=== PATIENT | male | born 1940 | race Caucasian/White ===

== ENCOUNTER 2018-03-03 08:45 | Day surgery (SDC) | payer MEDICARE, OTHER ==
[~2018-03-03] VITALS: Ht 177.8 cm; Wt 91.2 kg
[~2018-03-03 08:45] MED LIST: ASPI325EC PO; HYDR1TAB94 PO; LEVO-T150 MCG PO; LOSARTAN POTAS100 MG PO; PRED1 PO
== END 2018-03-03 12:58 | disposition home or self-care (01) ==
LOC: ORSCSDS 08:45
PROVIDERS: Internal Medicine Gastroenterology
PROC: 0DBH8ZX Excision of Cecum, Via Natural or Artificial Opening Endoscopic, Diagnostic (ICD-10-PCS; principal; 2018-03-03 10:15)
PROC: 0DBL8ZX Excision of Transverse Colon, Via Natural or Artificial Opening Endoscopic, Diagnostic (ICD-10-PCS; principal; 2018-03-03 10:15)
DX: Z12.11 Encounter for screening for malignant neoplasm of colon (principal); D12.0 Benign neoplasm of cecum; D12.3 Benign neoplasm of transverse colon; K64.8 Other hemorrhoids; K57.30 Diverticulosis of large intestine without perforation or abscess without bleeding; Z86.010 Personal history of colon polyps; I10 Essential (primary) hypertension; Z79.899 Other long term (current) drug therapy
CPT/HCPCS: 88305; J7120

== ENCOUNTER 2019-12-15 10:19 | Day surgery (SDC) | payer MEDICARE, OTHER ==
[~2019-12-15] VITALS: Ht 177.8 cm; Wt 97.9 kg
[2019-12-15] MEDS ORDERED: Aspir 8181 MG PO (10:46)
[2019-12-15] MEDS ORDERED: DULO60 PO (10:47)
== END 2019-12-15 11:30 | disposition home or self-care (01) ==
LOC: ORSCSDS 10:19
PROVIDERS: Anesthesiology
PROC: 3E0R33Z Introduction of Anti-inflammatory into Spinal Canal, Percutaneous Approach (ICD-10-PCS; principal; 2019-12-15 11:30)
DX: M54.16 Radiculopathy, lumbar region (principal); I10 Essential (primary) hypertension; E03.9 Hypothyroidism, unspecified; M48.061 Spinal stenosis, lumbar region without neurogenic claudication; F32.9 Major depressive disorder, single episode, unspecified; E66.9 Obesity, unspecified; Z68.31 Body mass index [BMI] 31.0-31.9, adult; Z79.82 Long term (current) use of aspirin; Z79.899 Other long term (current) drug therapy
CPT/HCPCS: J1040

== ENCOUNTER 2020-05-11 11:25 | Day surgery (SDC) | payer MEDICARE, OTHER ==
[~2020-05-11] VITALS: Ht 175.3 cm; Wt 98.1 kg
[~2020-05-11 11:25] MED LIST changes: +Aspir 8181 MG PO; +DULO60 PO
[2020-05-11] MEDS ORDERED: HYDR1TAB94 PO (11:59)
[2020-05-11] MEDS ORDERED: NAPR500 (11:59)
== END 2020-05-11 12:39 | disposition home or self-care (01) ==
LOC: ORSCSDS 11:25
PROVIDERS: Anesthesiology
PROC: 3E0R33Z Introduction of Anti-inflammatory into Spinal Canal, Percutaneous Approach (ICD-10-PCS; principal; 2020-05-11 12:30)
DX: M51.16 Intervertebral disc disorders with radiculopathy, lumbar region (principal); F32.9 Major depressive disorder, single episode, unspecified; I10 Essential (primary) hypertension; E03.9 Hypothyroidism, unspecified; Z79.82 Long term (current) use of aspirin; Z79.899 Other long term (current) drug therapy
CPT/HCPCS: J1040

== ENCOUNTER 2020-09-27 10:21 | Day surgery (SDC) | payer MEDICARE, OTHER ==
[~2020-09-27] VITALS: Ht 177.8 cm; Wt 98.5 kg
[~2020-09-27 10:21] MED LIST changes: +NAPR500
== END 2020-09-27 11:55 | disposition home or self-care (01) ==
LOC: ORSCSDS 10:21
PROVIDERS: Anesthesiology
PROC: 3E0R33Z Introduction of Anti-inflammatory into Spinal Canal, Percutaneous Approach (ICD-10-PCS; principal; 2020-09-27 11:30)
DX: M51.16 Intervertebral disc disorders with radiculopathy, lumbar region (principal); F32.9 Major depressive disorder, single episode, unspecified; I10 Essential (primary) hypertension; E03.9 Hypothyroidism, unspecified; E66.01 Morbid (severe) obesity due to excess calories; Z68.31 Body mass index [BMI] 31.0-31.9, adult; Z79.82 Long term (current) use of aspirin; Z79.899 Other long term (current) drug therapy
CPT/HCPCS: J1040

== ENCOUNTER 2021-07-17 08:23 | Day surgery (SDC) | payer MEDICARE, OTHER ==
[~2021-07-17] VITALS: Ht 177.8 cm; Wt 89.7 kg
[~2021-07-17 08:23] MED LIST changes: +ELIQUIS5 M2 PO
--- NOTE | 2021-07-17 11:13 | NUR ---
07/17/21 Guy3 Omaira Colon PROPOFOL ADMINISTERED BY ENA WHITMORE RN.
== END 2021-07-17 10:35 | disposition home or self-care (01) ==
LOC: ORSCSDS 08:23
PROVIDERS: Internal Medicine Gastroenterology
PROC: 0DBL8ZX Excision of Transverse Colon, Via Natural or Artificial Opening Endoscopic, Diagnostic (ICD-10-PCS; principal; 2021-07-17 09:45)
DX: Z12.11 Encounter for screening for malignant neoplasm of colon (principal); D12.3 Benign neoplasm of transverse colon; K57.30 Diverticulosis of large intestine without perforation or abscess without bleeding; K64.8 Other hemorrhoids; Z86.010 Personal history of colon polyps; I10 Essential (primary) hypertension; I48.91 Unspecified atrial fibrillation; Z79.82 Long term (current) use of aspirin; Z79.899 Other long term (current) drug therapy; Z79.01 Long term (current) use of anticoagulants
CPT/HCPCS: 88305; J2704; J7120

== ENCOUNTER 2022-07-16 06:56 | Day surgery (SDC) | payer MEDICARE, OTHER ==
[~2022-07-16] VITALS: Ht 175.3 cm; Wt 99.0 kg
--- NOTE | 2022-07-16 10:31 | NUR ---
pt ambulated to restroom w/o assistance.
--- NOTE | 2022-07-16 10:34 | NUR ---
2cc removed from tr band. no bleeding noted. site soft and non-tender per pt.
--- NOTE | 2022-07-16 10:49 | NUR ---
2cc removed from tr band. no bleeding noted. site soft and non-tender.
--- NOTE | 2022-07-16 11:19 | NUR ---
tr band fully deflated. no bleeding noted. site soft and non-tender.
--- NOTE | 2022-07-16 12:22 | NUR ---
PT GIVEN DC INSTRUCTIONS AND VERBALIZED UNDERSTANDING. TR BAND REMOVED. CLOTH DOT PLACED. ARM BOARD PLACED. SLING PLACED. PT TAKEN TO LBY VIA WC WHERE FAMILY IS WAITING. PT TAKEN TO VEHICLE VIA WC.
== END 2022-07-16 12:15 | disposition home or self-care (01) ==
LOC: MHTC 06:56
DX: I48.0 Paroxysmal atrial fibrillation (principal); I47.1 Supraventricular tachycardia; R00.1 Bradycardia, unspecified; I25.10 Atherosclerotic heart disease of native coronary artery without angina pectoris; I25.82 Chronic total occlusion of coronary artery; I11.9 Hypertensive heart disease without heart failure; Z79.01 Long term (current) use of anticoagulants; Z86.73 Personal history of transient ischemic attack (TIA), and cerebral infarction without residual deficits
CPT/HCPCS: 76937; 93454; 99152; 99153; A9270; C1769; C1887; C1894; J1644; J2250; J3010; J7030; J7050; Q9967

== ENCOUNTER → 2023-05-03 | Outpatient (CLI) | payer MEDICARE, OTHER | END | disposition home or self-care (01) | LOC: LAB 08:35 → LAB SHORT 08:35 | DX: R31.9 Hematuria, unspecified (principal) | CPT/HCPCS: 87086 ==

== ENCOUNTER 2023-06-19 05:50 | Day surgery (SDC) | payer MEDICARE, OTHER ==
[~2023-06-19] VITALS: Ht 177.8 cm; Wt 88.0 kg
[2023-06-19] MEDS ORDERED: NITR.4SL SL (06:19)
[2023-06-19] MEDS ORDERED: ROSU10TA PO (06:20)
[2023-06-19] MEDS ORDERED: MULTI-VITAMIN1 EAC2 PO (06:20)
[2023-06-19] MEDS ORDERED: Flomax0.4 MG PO (06:21)
[2023-06-19 06:33] VITALS: BP 136/69
[2023-06-19 06:45] VITALS: BP 145/87
[2023-06-19 07:00] VITALS: BP 144/71
[2023-06-19 07:15] VITALS: BP 162/102
[2023-06-19 07:30] VITALS: BP 124/71
[2023-06-19 07:42] VITALS: BP 130/89
--- NOTE | 2023-06-19 08:20 | NUR ---
PT AND VERBALIZED UNDERSTANDING OF WRITTEN AND VERBAL D/C INST. IV REMOVED. PT TAKEN OUT OF THE HRT CENTER VIA W/C.
== END 2023-06-19 22:52 | disposition home or self-care (01) ==
LOC: MHTC 05:50
DX: I48.0 Paroxysmal atrial fibrillation (principal); I25.10 Atherosclerotic heart disease of native coronary artery without angina pectoris; I10 Essential (primary) hypertension
CPT/HCPCS: 93312; 93325; 99152; A9270; J2250; J2310; J3010; J7030

== ENCOUNTER → 2023-09-02 | Outpatient (CLI) | payer MEDICARE, OTHER ==
[~2023-09-02] MED LIST changes: +Flomax0.4 MG PO; +MULTI-VITAMIN1 EAC2 PO; +NITR.4SL SL; +ROSU10TA PO
[2023-09-02 19:44] LABS: BASOPHILS ABSOLUTE AUTO 0.06 K/mm3 (0.00-0.23); BASOPHILS PERCENT AUTO 1 % (0-2); EOSINOPHILS ABSOLUTE AUTO 0.08 K/mm3 (0.00-0.68); EOSINOPHILS PERCENT AUTO 1 % (0-6); Hematocrit 33.5 % (37.0-53.0); Hemoglobin 10.8 g/dL (13.5-17.5); IMMATURE GRAN ABSOLUTE AUTO 0.08 K/mm3 (0.00-0.10); IMMATURE GRAN PERCENT AUTO 1 % (0-1); LYMPHOCYTES ABSOLUTE AUTO 1.03 K/mm3 (0.84-5.20); LYMPHOCYTES PERCENT AUTO 18 % (21-46); MONOCYTES ABSOLUTE AUTO 0.78 K/mm3 (0.16-1.47); MONOCYTES PERCENT AUTO 14 % (4-13); Mean Corpuscular HGB 31.3 pg (26.0-34.0); Mean Corpuscular HGB Conc 32.2 g/dL (31.5-36.5); Mean Corpuscular Volume 97 fL (80-100); Mean Platelet Volume 11.1 fL (9.1-12.4); NEUTROPHILS ABSOLUTE AUTO 3.74 K/mm3 (1.96-9.15); NEUTROPHILS PERCENT AUTO 65 % (41-73); Platelet Count 193 K/mm3 (150-400); RDW Coefficient Variation 14.9 % (11.7-14.2); RDW Standard Deviation 53.3 fL (35.1-46.3); Red Blood Cell Count 3.45 M/mm3 (4.30-5.90); White Blood Cell Count 5.77 K/mm3 (4.00-11.30)
== END ==
LOC: LAB SHORT 18:16 → LAB 18:16
PROVIDERS: Internal Medicine Hematology & Oncology
DX: D64.9 Anemia, unspecified (principal); R94.5 Abnormal results of liver function studies
CPT/HCPCS: 85025

== ENCOUNTER 2024-10-05 08:57 | Day surgery (SDC) | payer MEDICARE, OTHER ==
[~2024-10-05] VITALS: Ht 175.3 cm; Wt 92.9 kg
[~2024-10-05 08:57] MED LIST changes: +Balanced Salt Epinephrine Irrigation Solution 500 mL IR SCH; +Lidocaine HCl/Pf 1% 5 ML VIAL XX SCH; +Moxifloxacin HCL 0.5 MG/0.1 ML 0.4MLSYR RIGHTEYE SCH; +PHENYLEPHRINE\\TROPICAMIDE\\TETRACAINE OPHTHALMIC DILATING SOLN RIGHTEYE PRN; +Povidone-Iodine 450 DROP/30 ML Solution ONE; +Povidone-Iodine 450 DROP/30 ML Solution RIGHTEYE SCH; +Tetracaine HCl/Pf 0.5% Opth Soln 4 ml ONE
[2024-10-05] MEDS ORDERED: ROSUVASTATIN CA10 MG PO (09:16)
--- NOTE | 2024-10-05 09:22 | NUR ---
10/05/24 0922 Bere Aponte AT 0915 PLEET 0916
[2024-10-05] MEDS ORDERED: Midazolam HCl 1MG / ML 2ML Vial ONE (09:53)
--- NOTE | 2024-10-05 11:18 | NUR ---
10/05/24 1118 Lesvia Alcaraz PT SUSPECTED OF BEING IN A-FIB PER (SDU) MONITORS (ASYMPTOMATIC). PT AND S/O UNAWARE OF A RECENT A-FIB DX. STS IS NOT ON ANY BLOOD THINNER FOR AFIB. NOTIFIED DR. MILLER, ANESTHESIOLOGIST. REQUESTED 12 LEAD EKG. PT HX OF CARDIAC BYPASS IN 2021. PT AND S/O ST HAVE NOT SEEN A EXCELSIOR MACHINE TENDER SINCE THEN. PT DOES HAVE SOME SOB, BUT STS HAS HAD THAT FOR MANY YEARS. THIS RN AND STAFF STRONGLY ENCOURAGED PT AND S/O TO F/U WITH EXCELSIOR MACHINE TENDER. WILL FAX NOTE AND EKG COPY UPSTAIRS TO CARDIOLOGY. EKG READS ACTIVE A-FIB.
[2024-10-05 11:20] VITALS: BP 135/90
== END 2024-10-05 11:15 | disposition home or self-care (01) ==
LOC: ORSCSDS 08:57
PROVIDERS: Student in an Organized Health Care Education/Training Program
PROC: 08RJ3JZ Replacement of Right Lens with Synthetic Substitute, Percutaneous Approach (ICD-10-PCS; principal; 2024-10-05 10:30)
DX: H25.813 Combined forms of age-related cataract, bilateral (principal); H52.201 Unspecified astigmatism, right eye; H21.81 Floppy iris syndrome; I48.91 Unspecified atrial fibrillation; Z79.899 Other long term (current) drug therapy
CPT/HCPCS: 93005; 93010; J2250; V2632

== ENCOUNTER 2024-10-12 13:02 | Day surgery (SDC) | payer MEDICARE, OTHER ==
[~2024-10-12] VITALS: Ht 175.3 cm; Wt 93.8 kg
[~2024-10-12 13:02] MED LIST changes: +Moxifloxacin HCL 0.5 MG/0.1 ML 0.4MLSYR LEFTEYE SCH; -Moxifloxacin HCL 0.5 MG/0.1 ML 0.4MLSYR RIGHTEYE SCH; +PHENYLEPHRINE\\TROPICAMIDE\\TETRACAINE OPHTHALMIC DILATING SOLN LEFTEYE PRN; -PHENYLEPHRINE\\TROPICAMIDE\\TETRACAINE OPHTHALMIC DILATING SOLN RIGHTEYE PRN; +Povidone-Iodine 450 DROP/30 ML Solution LEFTEYE SCH; -Povidone-Iodine 450 DROP/30 ML Solution ONE; -Povidone-Iodine 450 DROP/30 ML Solution RIGHTEYE SCH; +ROSUVASTATIN CA10 MG PO; +Tetracaine HCl 0.5% Opth Soln 15 ml ONE; -Tetracaine HCl/Pf 0.5% Opth Soln 4 ml ONE
[2024-10-12] MEDS ORDERED: Midazolam HCl 1MG / ML 2ML Vial ONE (13:06)
[2024-10-12] MEDS ORDERED: Tetracaine HCl 0.5% Opth Soln 15 ml LEFTEYE ONE (13:50)
[2024-10-12 14:28] VITALS: BP 119/75
== END 2024-10-12 14:38 | disposition home or self-care (01) ==
LOC: ORSCSDS 13:02
PROVIDERS: Student in an Organized Health Care Education/Training Program
PROC: 08RK3JZ Replacement of Left Lens with Synthetic Substitute, Percutaneous Approach (ICD-10-PCS; principal; 2024-10-12 14:30)
DX: H25.812 Combined forms of age-related cataract, left eye (principal); H21.81 Floppy iris syndrome; H52.202 Unspecified astigmatism, left eye; Z96.1 Presence of intraocular lens; I10 Essential (primary) hypertension; I48.91 Unspecified atrial fibrillation; K21.9 Gastro-esophageal reflux disease without esophagitis; E66.9 Obesity, unspecified; Z68.30 Body mass index [BMI] 30.0-30.9, adult; Z79.899 Other long term (current) drug therapy
CPT/HCPCS: J2250; V2632

== ENCOUNTER 2024-10-25 10:26 | Day surgery (SDC) | payer MEDICARE, OTHER ==
[~2024-10-25] VITALS: Ht 172.7 cm; Wt 94.9 kg
[~2024-10-25 10:26] MED LIST changes: -Balanced Salt Epinephrine Irrigation Solution 500 mL IR SCH; -Lidocaine HCl/Pf 1% 5 ML VIAL XX SCH; -Moxifloxacin HCL 0.5 MG/0.1 ML 0.4MLSYR LEFTEYE SCH; -PHENYLEPHRINE\\TROPICAMIDE\\TETRACAINE OPHTHALMIC DILATING SOLN LEFTEYE PRN; -Povidone-Iodine 450 DROP/30 ML Solution LEFTEYE SCH; -Tetracaine HCl 0.5% Opth Soln 15 ml ONE; +methylPREDNISolone acetate 80 MG/ML 1MLVIAL ONE
[2024-10-25 11:19] VITALS: BP 147/95
--- NOTE | 2024-10-25 11:20 | NUR ---
Ambulatory in Day Surgery WITH STEADY GAIT. AT BEDSIDE. History, Chart, Medications and Allergies reviewed before start of procedure. PT PLACED IN GOWN. Patient confirms NPO status and agrees with scheduled surgery. CALL LIGHT IN REACH. BED IN LOWEST LOCKED POSITION. WILL CONTINUE TO MONITOR.
[2024-10-25 12:57] VITALS: BP 129/48
[2024-10-25 13:01] VITALS: BP 125/52
--- NOTE | 2024-10-25 13:17 | NUR ---
10/25/24 1317 Johnnie Callahan 5ML'S ISOVUE 200M INJ INTO OPSITE BY SARAH.
== END 2024-10-25 23:24 | disposition home or self-care (01) ==
LOC: ORSCMMR 10:26 → ORSCSDS 12:00 → ORSCMMR 13:00 → ORSCSDS 10-27 11:00
DX: M47.26 Other spondylosis with radiculopathy, lumbar region (principal); M48.062 Spinal stenosis, lumbar region with neurogenic claudication; Z79.899 Other long term (current) drug therapy; Z87.891 Personal history of nicotine dependence